=== PATIENT | male | born 2000 | race Caucasian/White ===

== ENCOUNTER 2019-12-21 12:45 | Emergency (ER) | payer OTHER ==
--- NOTE | 2019-12-21 13:00 | EDM.PDOC ---
ED HPI GENERAL MEDICAL PROBLEM - General Chief Complaint: Syncope Stated Complaint: FAINTING Time Seen by Provider: 12/21/19 12:45 Source of Information: Reports: Patient History Limitations: Reports: No Limitations - History of Present Illness INITIAL COMMENTS - FREE TEXT/NARRATIVE: 19-year-old male with no past medical history presents with syncopal episode. 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 He felt his stomach feeling queasy and blurry vision and passed out. He hit his forehead. Denies LOC, chest pain, shortness of breath, neck pain, nausea, vomiting, headache. Tetanus is up-to-date. ROS: A 10-point review of systems, other than pertinent positives and negatives as stated per HPI, is otherwise negative Past medical history: No additional pertinent history Past Surgical history: No additional pertinent history Social history: No additional pertinent history Family history: No additional pertinent history PHYSICAL EXAM General: AOx4, GCS = 15, No distress HEENT: dry mucous membrane, 1cm laceration to frontalis, well approximated. Neck: supple, no meningismus, no Kernig or Brudzinski, no c-spine ttp. Cardiac: S1S2 RRR Respiratory: CTAB, no crackles or rales, no wheezing Abdomen: Soft, nontender, no rebound or guarding, nondistended, no pulsatile mass. Back: nontender Musculoskeletal: NVI distally, no deformity Neuro: No focal deficits - Related Data Allergies Allergy/AdvReac Type Severity Reaction Status Date / Time No Known Allergies Allergy Verified 12/21/19 12:51 Home Meds: Home Meds . [No Known Home Meds] 12/21/19 [History] Past Medical History - Past Surgical History HEENT Surgical History: Reports: Oral Surgery Other Musculoskeletal Surgeries/Procedures:: finger surgery Social & Family History - Tobacco Use Smoking Status *Q: Never Smoker - Caffeine Use Caffeine Use: Reports: None - Recreational Drug Use Recreational Drug Use: No ED ROS GENERAL - Review of Systems Review Of Systems: Comprehensive ROS is negative, except as noted in HPI. - Physical Exam Exam: See Below (see dictation) ED PROCEDURES - Laceration/Wound Repair Head Lac/wound length in cm: 1 Appearance: Superficial Distal NVT: Neuro & Vascular Intact, No Tendon Injury Skin Prep: Saline Closed with: Steri-Strips Tetanus Status Addressed: Yes Complications: No EKG INTERPRETATION EKG Interpretation Comments: 66 Bpm, NSR, normal QRS interval, no LVH/Brugada/Wellens/long QThyperacute T waves, no STEMI. EKG and rhythm strip interpreted by me at 1239 Course - Vital Signs Last Recorded V/S: Last Vital Signs Temp 96.1 F L 12/21/19 12:49 Pulse 71 12/21/19 12:49 Resp 16 12/21/19 12:49 BP 130/70 12/21/19 12:49 Pulse Ox 99 12/21/19 12:49 - Re-Assessments/Exams Free Text/Narrative Re-Assessment/Exam: 12/21/19 12:58 After Steri-Strips, he improved clinically and is stable for discharge. I performed a repeat examination and the patient has not demonstrated any new abnormal findings. Patient exhibits normal vital signs and has exhibited a normal gait. I advised the patient to return to the ER for reevaluation if symptoms worsened, and to follow up with their PCP within 2-3 days. MEDICAL DECISION MAKING: I reviewed the patients past medical records, lab and radiographic findings. I discussed the case with the patient. My differential diagnosis included: Vasovagal syncope. Arrhythmia, heart block. EKG did not reveal worrisome findings warranting additional blood work and observation admission. His symptoms are consistent with vasovagal syncope. He denies any headache, neck pain, I offered him CT imaging studies, he declined to undergo imaging studies at this time. I instructed him to come back if his headache worsens. Departure - Departure Time of Disposition: 13:01 Disposition: Home, Self-Care 01 Condition: Good Clinical Impression: Vasovagal syncope, Scalp laceration - Discharge Information *PRESCRIPTION DRUG MONITORING PROGRAM REVIEWED*: Not Applicable *COPY OF PRESCRIPTION DRUG MONITORING REPORT IN PATIENT KETAN: Not Applicable Instructions: Sutures, [place], or Adhesive Wound Closure, [id number], Syncope, [id number] Referrals: PCP,Unknown [Primary Care Provider] - 3 Days Additional Instructions: The following information is given to patients seen in the emergency department who are being discharged to home. This information is to outline your options for follow-up care. We provide all patients seen in our emergency department with a follow-up referral. The need for follow-up, as well as the timing and circumstances, are variable depending upon the specifics of your emergency department visit. If you don't have a primary care physician on staff, we will provide you with a referral. We always advise you to contact your personal physician following an emergency department visit to inform them of the circumstance of the visit and for follow-up with them and/or the need for any referrals to a consulting specialist. The emergency department will also refer you to a specialist when appropriate. This referral assures that you have the opportunity for follow-up care with a specialist. All of these measure are taken in an effort to provide you with optimal care, which includes your follow-up. Under all circumstances we always encourage you to contact your private physician who remains a resource for coordinating your care. When calling for follow-up care, please make the office aware that this follow-up is from your recent emergency room visit. If for any reason you are refused follow-up, please contact the [facility] Emergency Department at and asked to speak to the emergency department charge nurse. If you do not have a primary care doctor, please follow up with the clinics below within 3-5 days. [facility] [address] [place] [id number] [facility] [address] [place] [id number] Sepsis Event Note (ED) - Evaluation Sepsis Screening Result: No Definite Risk - Focused Exam Vital Signs: Vital Signs Temp Pulse Resp BP Pulse Ox 12/21/19 12:49 96.1 F L 71 16 130/70 99
== END 2019-12-21 13:13 | disposition home or self-care (01) ==
LOC: MW.ED 12:45
DX: S01.01XA Laceration without foreign body of scalp, initial encounter (principal); R55 Syncope and collapse; W22.8XXA Striking against or struck by other objects, initial encounter
CPT/HCPCS: 93005; 99284-25